=== PATIENT | male | born 1940 ===

== ENCOUNTER 2022-03-26 10:40 | Observation (INO) ==
[~2022-03-26 10:40] MED LIST: Buffered Lidocaine 1% SYRIN 1 ml INTRADERM ONE; Lactated Ringers 1000 ml BAG 1,000 ML IV SCH
[2022-03-26] MEDS ORDERED: Clindamycin 900 MG/D5W BAG 900 MG/50 ML BAG IVPB ONE (11:23)
[2022-03-26] MEDS ORDERED: ROPIVACAINE 5 MG/ML 30 ML BTL (0.5%) ONE (11:36)
[2022-03-26] MEDS ORDERED: Ropivacaine 5 MG/ML 20 ML VIAL 0.5% (100 MG) ONE (11:40)
[2022-03-26] MEDS ORDERED: Midazolam 2 mg/2 ml VIAL 1 mg/ml 2 ml VIAL (2 mg) ONE (12:08)
[2022-03-26] MEDS ORDERED: Propofol 10 MG/ML 20 ML BTL ONE (12:14)
[2022-03-26] MEDS ORDERED: fentaNYL 100 mcg/2 ml 50 MCG/ML VIAL ONE (12:33)
[2022-03-26] MEDS ORDERED: Naloxone 0.4 mg VIAL 0.4 mg/ml 1 ml VIAL IV PRN (13:26)
[2022-03-26] MEDS ORDERED: HYDROmorphone 1 MG/1 ML SYRINGE IV PRN (13:26)
[2022-03-26] MEDS ORDERED: Ondansetron 4 mg VIAL 2 MG/ML 2 ml VIAL ONE ×2 (13:40→16:04)
[2022-03-26] MEDS ORDERED: HYDROmorphone 0.5 MG/0.5 ML SYRINGE ONE (13:40)
[2022-03-26] MEDS ORDERED: Dexamethasone IV 4 MG/ML VIAL 1 ml VIAL ONE (13:40)
[2022-03-26] MEDS ORDERED: Acetaminophen IV 1 GM/100ML 1,000 MG/100 ML BAG IV ONE (15:07)
[2022-03-26] MEDS ORDERED: Glycopyrrolate IV 0.2 MG/ML 1 ML VIAL ONE (15:07)
[2022-03-26] MEDS ORDERED: Lactulose 30 ml UDC PO PRN (15:10)
[2022-03-26] MEDS ORDERED: Ondansetron ODT 4 mg TAB 4 MG TAB PO PRN (15:10)
[2022-03-26] MEDS ORDERED: Ondansetron 4 mg VIAL 2 MG/ML 2 ml VIAL IV PRN (15:10)
[2022-03-26] MEDS ORDERED: Magnesium Hydroxide LIQ 30 ML UDC PO PRN (15:10)
[2022-03-26] MEDS ORDERED: Morphine 2 MG/ML SYRINGE IV PRN (15:10)
[2022-03-26] MEDS ORDERED: Lactated Ringers 1000 ml BAG 1,000 ML IV SCH (16:00)
[2022-03-26] MEDS ORDERED: Ondansetron 4 mg VIAL 2 MG/ML 2 ml VIAL IV ONE (16:01)
[2022-03-26] MEDS: Clindamycin 600 MG/D5W BAG 600 MG/50 ML BAG IV SCH (23:03)
[2022-03-27] MEDS: Magnesium Hydroxide LIQ 30 ML UDC PO SCH ×2 (00:36→09:03)
[2022-03-27] MEDS: Clindamycin 600 MG/D5W BAG 600 MG/50 ML BAG IV SCH ×2 (05:15→12:50)
[2022-03-27 06:36] LABS: Hematocrit 35 % (42-52); Hemoglobin 11.8 g/dL (14.0-18.0); Mean Platelet Volume 8.9 fL (7.4-10.4); Platelet Count 178 10^3/uL (150-450)
[2022-03-27 06:54] LABS: Calcium 8.7 mg/dL (8.6-10.3); Potassium 4.1 mmol/L (3.5-5.0); eGFR CKD-EPI 68.1 (>60)
[2022-03-27] MEDS ORDERED: Calcium Polycarbophil 625mg TB PO SCH (09:00)
[2022-03-27] MEDS ORDERED: Vitamin THERAPEUTIC TAB PO SCH (09:00)
[2022-03-27 10:58] VITALS: BP 123/44
== END 2022-03-27 13:36 | disposition home or self-care (01) ==
LOC: AA 10:40 → INTOOBSV 10:40 → SSU 15:10
PROVIDERS: ADMIT Orthopaedic Surgery Adult Reconstructive Orthopaedic Surgery; ATTEND Orthopaedic Surgery Adult Reconstructive Orthopaedic Surgery